=== PATIENT | male | born 1985 | race Caucasian/White ===

== ENCOUNTER → 2020-06-05 | Emergency (ER) | payer OTHER ==
[~2020-06-05] VITALS: Ht 180.3 cm; Wt 93.2 kg
[~2020-06-05] MED LIST: LISI-600 PO; LORazepam 2 mg/ml vial IV ONE; NO HOME MEDS; lisinopril 10 MG tablet PO ONE; normal saline 1000ML IV soln IVB ONE
[2020-06-05 19:15] LABS: BASOPHILS % (AUTO) 0.3 % (0-1); EOSINOPHILS % (AUTO) 0.3 % (0-6); HEMATOCRIT 53.7 % (42.0-52.0); LYMPHOCYTES # (AUTO) 0.6 X10'3 (1.1-4.8); LYMPHOCYTES % (AUTO) 7.3 % (21-51); MEAN CORPUSCULAR HEMOGLOBIN 33.9 PG (27.0-31.0); MEAN CORPUSCULAR HGB CONC 33.6 g/dL (33.0-36.5); MEAN CORPUSCULAR VOLUME 100.7 FL (78-98); MEAN PLATELET VOLUME 9.7 FL (7.4-10.4); MONOCYTES # (AUTO) 0.7 X10'3 (0-0.9); MONOCYTES % (AUTO) 8.1 % (2-12); NEUTROPHILS # (AUTO) 6.9 X10'3 (1.8-7.7); PLATELET COUNT 182 X10'3 (140-440); RED BLOOD COUNT 5.34 X10'6 (4.70-6.10); RED CELL DISTRIBUTION WIDTH 12.8 % (11.5-14.5); WHITE BLOOD COUNT 8.2 X10'3 (4.5-11.0)
[2020-06-05 19:21] LABS: HEMOGLOBIN 18.1 g/dl (14.0-17.9)
[2020-06-05 19:24] LABS: URINE AMPHETAMINE SCREEN NEGATIVE (Neg); URINE BARBITUATE SCREEN NEGATIVE (Neg); URINE BENZODIAZEPINES SCREEN NEGATIVE (Neg); URINE CANNABINOID SCREEN POSITIVE (Neg); URINE COCAINE SCREEN NEGATIVE (Neg); URINE METHADONE SCREEN NEGATIVE (Neg); URINE OPIATE SCREEN POSITIVE (Neg); URINE PHENCYCLIDINE SCREEN NEGATIVE (Neg)
[2020-06-05 19:32] LABS: ALANINE AMINOTRANSFERASE 39 U/L (12-78); ALBUMIN 4.2 G/DL (3.4-5.0); ALBUMIN/GLOBULIN RATIO 1.1 (1.1-1.5); ALKALINE PHOSPHATASE 65 IU/L (46-116); ANION GAP 11 (8-16); ASPARTATE AMINO TRANSFERASE 35 U/L (10-37); BILIRUBIN,TOTAL 0.9 MG/DL (0.1-1.0); BLOOD UREA NITROGEN 11 MG/DL (7-18); BUN/CREATININE RATIO 10.7 (5.4-32.0); CALCIUM 9.4 MG/DL (8.5-10.1); CHLORIDE 98 MMOL/L (99-107); CREATININE 1.03 MG/DL (0.60-1.10); GLUCOSE 88 MG/DL (70-104); SODIUM 138 MMOL/L (135-145); TOTAL CARBON DIOXIDE 29.2 MMOL/L (24-32); TOTAL PROTEIN 8.1 G/DL (6.4-8.2); eGFR 82 ML/MIN
[2020-06-05 19:40] LABS: ETHANOL < 0.010 GM/DL (0.0-0.010)
[2020-06-05 21:24] VITALS: BP 162/100
== END | disposition home or self-care (01) ==
LOC: ER 16:52
DX: I10 Essential (primary) hypertension (principal); F10.10 Alcohol abuse, uncomplicated; R51.9 Headache, unspecified; R11.10 Vomiting, unspecified; E86.0 Dehydration; Z91.14 Patient's other noncompliance with medication regimen; Z98.890 Other specified postprocedural states; Z72.89 Other problems related to lifestyle; Z88.6 Allergy status to analgesic agent; Z79.899 Other long term (current) drug therapy; Y90.0 Blood alcohol level of less than 20 mg/100 ml
CPT/HCPCS: 36415; 80053; 80305; 80320; 83880; 84484; 85025; 93005; 96374; 99285; J2060; J7030

== ENCOUNTER 2021-03-25 06:45 | Emergency (ER) | payer OTHER ==
[~2021-03-25] VITALS: Ht 180.3 cm; Wt 90.0 kg
[~2021-03-25 06:45] MED LIST changes: -LISI-600 PO; -LORazepam 2 mg/ml vial IV ONE; -lisinopril 10 MG tablet PO ONE; -normal saline 1000ML IV soln IVB ONE
[2021-03-25 06:58] VITALS: BP 175/118
[2021-03-25] MEDS ORDERED: ondansetron 4mg rapidly disintigrating tab PO ONE (07:10)
[2021-03-25] MEDS ORDERED: normal saline 1000ML IV soln IVB ONE ×2 (07:25→10:20)
[2021-03-25] MEDS: morphine 4 MG/ML inj SYRINge IV PRN ×2 (07:56→09:33)
[2021-03-25 08:04] LABS: BASOPHILS % (AUTO) 0.1 % (0-1); EOSINOPHILS % (AUTO) 0.1 % (0-6); HEMATOCRIT 55.2 % (42.0-52.0); LYMPHOCYTES # (AUTO) 0.4 X10'3 (1.1-4.8); LYMPHOCYTES % (AUTO) 3.2 % (21-51); MEAN CORPUSCULAR HEMOGLOBIN 34.9 PG (27.0-31.0); MEAN CORPUSCULAR HGB CONC 34.9 g/dL (33.0-36.5); MEAN CORPUSCULAR VOLUME 100.2 FL (78-98); MONOCYTES # (AUTO) 0.6 X10'3 (0-0.9); MONOCYTES % (AUTO) 4.8 % (2-12); NEUTROPHILS # (AUTO) 11.2 X10'3 (1.8-7.7); NEUTROPHILS % (AUTO) 91.8 % (42-75); PLATELET COUNT 158 X10'3 (140-440); RED BLOOD COUNT 5.51 X10'6 (4.70-6.10); RED CELL DISTRIBUTION WIDTH 13.2 % (11.5-14.5); WHITE BLOOD COUNT 12.1 X10'3 (4.5-11.0)
[2021-03-25 08:14] LABS: HEMOGLOBIN 19.2 g/dl (14.0-17.9)
[2021-03-25 08:16] LABS: ALANINE AMINOTRANSFERASE 97 U/L (12-78); ALBUMIN 4.3 G/DL (3.4-5.0); ALKALINE PHOSPHATASE 69 IU/L (46-116); ANION GAP 17 (8-16); ASPARTATE AMINO TRANSFERASE 65 U/L (10-37); BILIRUBIN,TOTAL 1.4 MG/DL (0.1-1.0); BLOOD UREA NITROGEN 13 MG/DL (7-18); BUN/CREATININE RATIO 11.1 (5.4-32.0); CALCIUM 8.8 MG/DL (8.5-10.1); CHLORIDE 97 MMOL/L (99-107); CREATININE 1.17 MG/DL (0.60-1.10); GLUCOSE 115 MG/DL (70-104); LIPASE 799 U/L (73-393); SODIUM 137 MMOL/L (135-145); TOTAL CARBON DIOXIDE 22.9 MMOL/L (24-32); TOTAL PROTEIN 8.6 G/DL (6.4-8.2); eGFR 71 ML/MIN
[2021-03-25] MEDS ORDERED: acetaminophen 325mg tablet PO ONE (08:50)
[2021-03-25] MEDS ORDERED: ondansetron/PF 4mg/2ml inj IV ONE (08:50)
[2021-03-25] MEDS ORDERED: morphine 4 MG/ML inj SYRINge IV PRN (08:50)
[2021-03-25] MEDS ORDERED: LORazepam 2 mg/ml vial IV ONE (10:20)
[2021-03-25] MEDS ORDERED: HYDR-3972 PO (10:51)
[2021-03-25] MEDS ORDERED: ONDA4TAB6 PO (10:51)
== END 2021-03-25 11:52 | disposition home or self-care (01) ==
LOC: ER 06:46
DX: K85.20 Alcohol induced acute pancreatitis without necrosis or infection (principal); R10.13 Epigastric pain; R11.2 Nausea with vomiting, unspecified; Z72.89 Other problems related to lifestyle; Z98.890 Other specified postprocedural states; Z88.6 Allergy status to analgesic agent; Z79.899 Other long term (current) drug therapy
CPT/HCPCS: 36415; 76700; 80053; 83690; 85025; 96361; 96374; 96375; 96376; 99284; J2060; J2270; J2405; J7030

== ENCOUNTER 2022-04-08 15:27 | Inpatient (IN) | payer OTHER ==
[~2022-04-08] VITALS: Ht 180.3 cm; Wt 96.0 kg
[~2022-04-08 15:27] MED LIST changes: +ONDA4TAB6 PO
[2022-04-08 16:59] LABS: BASOPHILS # (AUTO) 0.1 X10'3 (0-0.2); EOSINOPHILS % (AUTO) 0 % (0-6); PLATELET COUNT 168 X10'3 (140-440)
[2022-04-08 17:01] LABS: BASOPHILS % (AUTO) 0.3 % (0-1); LYMPHOCYTES # (AUTO) 0.2 X10'3 (1.1-4.8); LYMPHOCYTES % (AUTO) 1.3 % (21-51); MEAN CORPUSCULAR HEMOGLOBIN 34.7 PG (27.0-31.0); MEAN CORPUSCULAR HGB CONC 34.4 g/dL (33.0-36.5); MEAN CORPUSCULAR VOLUME 100.8 FL (78-98); MEAN PLATELET VOLUME 9.5 FL (7.4-10.4); MONOCYTES # (AUTO) 0.7 X10'3 (0-0.9); MONOCYTES % (AUTO) 3.9 % (2-12); NEUTROPHILS # (AUTO) 15.7 X10'3 (1.8-7.7); NEUTROPHILS % (AUTO) 94.5 % (42-75); RED BLOOD COUNT 5.65 X10'6 (4.70-6.10); RED CELL DISTRIBUTION WIDTH 13.6 % (11.5-14.5); WHITE BLOOD COUNT 16.6 X10'3 (4.5-11.0)
[2022-04-08 17:03] LABS: HEMOGLOBIN 19.6 g/dl (14.0-17.9)
[2022-04-08 17:10] LABS: ALANINE AMINOTRANSFERASE 58 U/L (12-78); ALBUMIN 4.3 G/DL (3.4-5.0); ALBUMIN/GLOBULIN RATIO 1.1 (1.1-1.5); ALKALINE PHOSPHATASE 57 IU/L (46-116); ANION GAP 13 (8-16); ASPARTATE AMINO TRANSFERASE 57 U/L (10-37); BILIRUBIN,TOTAL 1.4 MG/DL (0.1-1.0); BLOOD UREA NITROGEN 12 MG/DL (7-18); BUN/CREATININE RATIO 12.1 (5.4-32.0); CALCIUM 9.2 MG/DL (8.5-10.1); CHLORIDE 96 MMOL/L (99-107); CREATININE 0.99 MG/DL (0.60-1.10); GLUCOSE 131 MG/DL (70-104); SODIUM 131 MMOL/L (135-145); TOTAL CARBON DIOXIDE 21.7 MMOL/L (24-32); TOTAL PROTEIN 8.3 G/DL (6.4-8.2); eGFR 86 ML/MIN
[2022-04-08 17:19] LABS: LIPASE 4896 U/L (73-393)
[2022-04-08 17:32] LABS: CLARITY,URINE CLEAR (Clear); COLOR,URINE YELLOW (Yellow); GLUCOSE, URINE NEGATIVE (Neg); KETONES,URINE >=80 mg/dl (Neg); LEUKOCYTE ESTERASE ,URINE NEGATIVE (Neg); NITRITES, URINE NEGATIVE (Neg); OCCULT BLOOD,URINE MODERATE (Neg); PH,URINE 7.5 (4.8-8.0); PROTEIN,URINE >=300 mg/dl (Neg)
[2022-04-08 17:41] LABS: BACTERIA,URINE NONE SEEN /HPF (Neg); MUCUS STRANDS NONE SEEN /LPF (Neg); RBC,URINE 0-2 /HPF (0-2); SQUAMOUS EPITHELIAL CELL,UR NONE SEEN /LPF (FEW); UA COLLECTION TYPE CLN CATCH MIDSTREAM; WBC,URINE NONE SEEN /HPF (0-4)
[2022-04-08] MEDS ORDERED: pantoprazole 40 MG vial IV ONE (18:40)
[2022-04-08] MEDS ORDERED: morphine 4 MG/ML inj SYRINge IV ONE (18:40)
[2022-04-08] MEDS ORDERED: ondansetron/PF 4mg/2ml inj IV ONE (18:40)
[2022-04-08] MEDS ORDERED: normal saline 1000ML IV soln IVB ONE (18:40)
[2022-04-08] MEDS: morphine 2 MG/ML inj. syringe IV PRN ×2 (19:10→20:11)
[2022-04-08] MEDS: pantoprazole 40MG/NS 100ML BAG 100 ML IV SCH (19:26)
[2022-04-08] MEDS ORDERED: LORazepam 2 mg/ml vial IV ONE (19:35)
[2022-04-08] MEDS ORDERED: HYDROcodone/acetaminophen 5mg/325mg tablet PO PRN (19:35)
[2022-04-08] MEDS ORDERED: haloperidol 5mg tablet PO PRN (19:35)
[2022-04-08] MEDS ORDERED: haloperidol lactate 5mg/ml inj IM PRN (19:35)
[2022-04-08] MEDS ORDERED: ondansetron/PF 4mg/2ml inj IV PRN (19:35)
[2022-04-08] MEDS ORDERED: mag hydrox/Alum hydrox/simeth 30ml oral suspension PO PRN ×2 (19:35)
[2022-04-08] MEDS ORDERED: metoclopramide 5 mg/ml inj IV PRN (19:35)
[2022-04-08] MEDS ORDERED: morphine 2 MG/ML inj. syringe IV PRN (19:35)
[2022-04-08] MEDS ORDERED: acetaminophen 325mg tablet PO PRN ×2 (19:35)
[2022-04-08] MEDS ORDERED: magnesium hydroxide 30ml (MOM) UD suspension PO PRN (19:35)
[2022-04-08] MEDS ORDERED: dicyclomine 10 MG capsule PO PRN (19:35)
[2022-04-08] MEDS ORDERED: dextrose 50%-water 50ml dispensing syringe IV PRN (19:35)
[2022-04-08] MEDS ORDERED: cyclobenzaprine 10mg tablet PO PRN (19:35)
[2022-04-08] MEDS: LORazepam 2 mg/ml vial IV PRN ×2 (19:53→22:13)
[2022-04-08] MEDS: docusate sod 100mg capsule PO SCH (20:00)
[2022-04-08] MEDS: dextrose 5%-1/2 normal saline 1,000 ML IV SCH (20:07)
[2022-04-08] MEDS: thiamine 100mg/ml 2ml inj. IV SCH (21:02)
[2022-04-08 22:00] VITALS: BP 188/113
[2022-04-08] MEDS: HYDROcodone/acetaminophen 10/325mg tab PO PRN (22:20)
--- NOTE | 2022-04-09 00:26 | NUR ---
PAGER ID: [phone] MESSAGE: Please call Em at [phone] new admit with very high BP - [place]
[2022-04-09 00:29] VITALS: BP 207/107
[2022-04-09] MEDS ORDERED: cloNIDine 0.1 mg tablet PO ONE (00:30)
[2022-04-09] MEDS: morphine 2 MG/ML inj. syringe IV PRN ×5 (00:37→19:17)
[2022-04-09] MEDS: LORazepam 2 mg/ml vial IV PRN ×7 (00:38→22:22)
[2022-04-09] MEDS: pantoprazole 40MG/NS 100ML BAG 100 ML IV SCH ×2 (00:45→05:00)
[2022-04-09] MEDS: HYDROcodone/acetaminophen 10/325mg tab PO PRN ×3 (03:00→22:20)
[2022-04-09] MEDS: dextrose 5%-1/2 normal saline 1,000 ML IV SCH ×2 (04:59→15:25)
--- NOTE | 2022-04-09 06:17 | NUR ---
Problems reprioritized. Patient report given, questions answered & plan of care reviewed with ALMA Hansen.
[2022-04-09 06:33] LABS: BASOPHILS % (AUTO) 0.1 % (0-1); EOSINOPHILS % (AUTO) 0.1 % (0-6); HEMATOCRIT 51.3 % (42.0-52.0); HEMOGLOBIN 17.4 g/dl (14.0-17.9); LYMPHOCYTES # (AUTO) 0.4 X10'3 (1.1-4.8); LYMPHOCYTES % (AUTO) 2.3 % (21-51); MEAN CORPUSCULAR HEMOGLOBIN 34.4 PG (27.0-31.0); MEAN CORPUSCULAR HGB CONC 33.9 g/dL (33.0-36.5); MEAN CORPUSCULAR VOLUME 101.5 FL (78-98); MEAN PLATELET VOLUME 9.6 FL (7.4-10.4); MONOCYTES # (AUTO) 1.1 X10'3 (0-0.9); MONOCYTES % (AUTO) 7.1 % (2-12); NEUTROPHILS # (AUTO) 14.5 X10'3 (1.8-7.7); NEUTROPHILS % (AUTO) 90.4 % (42-75); PLATELET COUNT 145 X10'3 (140-440); RED BLOOD COUNT 5.06 X10'6 (4.70-6.10); RED CELL DISTRIBUTION WIDTH 13.7 % (11.5-14.5)
--- NOTE | 2022-04-09 06:46 | NUR ---
Patient in room [facility]. I have received report from Em MARQUEZ and had the opportunity to ask questions and assume patient care.
[2022-04-09 07:00] VITALS: BP 166/108
[2022-04-09 07:02] LABS: ALANINE AMINOTRANSFERASE 42 U/L (12-78); ALBUMIN 3.4 G/DL (3.4-5.0); ALKALINE PHOSPHATASE 44 IU/L (46-116); ASPARTATE AMINO TRANSFERASE 40 U/L (10-37); BILIRUBIN,TOTAL 1.1 MG/DL (0.1-1.0); BLOOD UREA NITROGEN 12 MG/DL (7-18); BUN/CREATININE RATIO 12.6 (5.4-32.0); CALCIUM 8.2 MG/DL (8.5-10.1); CREATININE 0.95 MG/DL (0.60-1.10); GLUCOSE 118 MG/DL (70-104); TOTAL CARBON DIOXIDE 24.3 MMOL/L (24-32); TOTAL PROTEIN 6.9 G/DL (6.4-8.2); eGFR 90 ML/MIN
[2022-04-09] MEDS: folic acid 1mg/0.2ml inj IV SCH (07:37)
[2022-04-09] MEDS: thiamine 100mg/ml 2ml inj. IV SCH ×3 (07:37→22:21)
[2022-04-09] MEDS: docusate sod 100mg capsule PO SCH ×2 (07:48→19:19)
[2022-04-09 07:53] LABS: CHLORIDE 98 MMOL/L (99-107)
[2022-04-09 10:05] VITALS: BP 161/103
--- NOTE | 2022-04-09 10:30 | NUR ---
paged Hospitalist regarding increased B/P. PAGER ID: [phone] MESSAGE: Re: Eric Campa 358B. B/P elevated. given 1 dose of Clonidine 0.2mg on Nocs. B/P 166/108 pulse 97. recheck 161/103 pulse 91. no other med orders. [facility] [id number].
[2022-04-09 10:41] LABS: ANION GAP 15 (8-16); POTASSIUM 3.7 MMOL/L (3.5-5.1); SODIUM 137 MMOL/L (135-145)
[2022-04-09 11:46] VITALS: BP 147/97
[2022-04-09 18:00] VITALS: BP 157/96
--- NOTE | 2022-04-09 18:35 | NUR ---
Problems reprioritized. Patient report given, questions answered & plan of care reviewed with Pat RN.
[2022-04-09 22:00] VITALS: BP 157/97
[2022-04-10] MEDS: morphine 2 MG/ML inj. syringe IV PRN ×3 (01:27→10:40)
[2022-04-10] MEDS: dextrose 5%-1/2 normal saline 1,000 ML IV SCH ×2 (01:27→11:35)
[2022-04-10] MEDS: HYDROcodone/acetaminophen 10/325mg tab PO PRN ×4 (03:16→17:33)
[2022-04-10] MEDS: LORazepam 2 mg/ml vial IV PRN ×2 (03:17→08:28)
[2022-04-10 06:00] VITALS: BP 155/97
[2022-04-10 06:26] LABS: EOSINOPHILS % (AUTO) 0.3 % (0-6); HEMOGLOBIN 17.1 g/dl (14.0-17.9); RED CELL DISTRIBUTION WIDTH 13.7 % (11.5-14.5)
[2022-04-10 06:28] LABS: BASOPHILS % (AUTO) 0.2 % (0-1); HEMATOCRIT 50.8 % (42.0-52.0); LYMPHOCYTES # (AUTO) 0.8 X10'3 (1.1-4.8); LYMPHOCYTES % (AUTO) 5.5 % (21-51); MEAN CORPUSCULAR HEMOGLOBIN 34.5 PG (27.0-31.0); MEAN CORPUSCULAR HGB CONC 33.7 g/dL (33.0-36.5); MEAN CORPUSCULAR VOLUME 102.4 FL (78-98); MEAN PLATELET VOLUME 9.6 FL (7.4-10.4); MONOCYTES # (AUTO) 1.5 X10'3 (0-0.9); MONOCYTES % (AUTO) 9.7 % (2-12); NEUTROPHILS # (AUTO) 12.7 X10'3 (1.8-7.7); NEUTROPHILS % (AUTO) 84.3 % (42-75); PLATELET COUNT 149 X10'3 (140-440); RED BLOOD COUNT 4.96 X10'6 (4.70-6.10); WHITE BLOOD COUNT 15.1 X10'3 (4.5-11.0)
--- NOTE | 2022-04-10 06:54 | NUR ---
Patient in room [facility] 358. I have received report from PAT RN and had the opportunity to ask questions and assume patient care.
[2022-04-10 06:58] LABS: ALANINE AMINOTRANSFERASE 31 U/L (12-78); ALBUMIN 3.2 G/DL (3.4-5.0); ALBUMIN/GLOBULIN RATIO 0.9 (1.1-1.5); ALKALINE PHOSPHATASE 44 IU/L (46-116); ANION GAP 9 (8-16); ASPARTATE AMINO TRANSFERASE 25 U/L (10-37); BILIRUBIN,TOTAL 1.1 MG/DL (0.1-1.0); BLOOD UREA NITROGEN 12 MG/DL (7-18); BUN/CREATININE RATIO 10.1 (5.4-32.0); CALCIUM 8.4 MG/DL (8.5-10.1); CHLORIDE 102 MMOL/L (99-107); CREATININE 1.19 MG/DL (0.60-1.10); GLUCOSE 85 MG/DL (70-104); POTASSIUM 3.7 MMOL/L (3.5-5.1); SODIUM 137 MMOL/L (135-145); TOTAL CARBON DIOXIDE 26.2 MMOL/L (24-32); TOTAL PROTEIN 6.7 G/DL (6.4-8.2); eGFR 69 ML/MIN
[2022-04-10] MEDS: docusate sod 100mg capsule PO SCH (08:00)
[2022-04-10] MEDS: folic acid 1mg/0.2ml inj IV SCH (08:25)
[2022-04-10] MEDS: thiamine 100mg/ml 2ml inj. IV SCH ×2 (08:25→13:19)
[2022-04-10 10:00] VITALS: BP 140/105
[2022-04-10 11:11] VITALS: BP 146/90
[2022-04-10] MEDS: LORazepam 1 MG tablet PO PRN ×2 (13:59→18:47)
--- NOTE | 2022-04-10 17:35 | NUR ---
Page Sent PAGER ID: [phone] MESSAGE: [phone] b soham kirkland tolerated lunch well and has not had any N/V. want to know if he can go home tonight? please let me know.
[2022-04-10] MEDS ORDERED: HYDR-3965 PO (17:45)
[2022-04-10] MEDS ORDERED: LORA-269 PO (17:45)
--- NOTE | 2022-04-10 18:54 | NUR ---
PT IS STABLE FOR DISCHARGE, IV DC AND CANNULA INTACT, ALL BELONGINGS TAKEN, ALL DC DISCHARGE INFO IS GONE OVER AND UNDERSTOOD, MEDS WERE SENT TO PHARMACY, PT WAS WALKED DOWN TO THE LOBBY AND LEFT WITH A FRIEND IN A PRIVATE VEHICLE.
[2022-04-12] MEDS ORDERED: thiamine 100mg tablet PO SCH (08:00)
[2022-04-13] MEDS ORDERED: folic acid 1mg tablet PO SCH (08:00)
== END 2022-04-10 18:50 | disposition home or self-care (01) | DRG 439 ==
LOC: ER 15:28 → ED HOLD 19:40 → SUR 3N 22:00
PROVIDERS: ADMIT Internal Medicine; ATTEND Internal Medicine
DX: K85.20 Alcohol induced acute pancreatitis without necrosis or infection (principal); F10.239 Alcohol dependence with withdrawal, unspecified; I10 Essential (primary) hypertension; Z88.6 Allergy status to analgesic agent; Z88.5 Allergy status to narcotic agent
CPT/HCPCS: 36415; 71045; 80053; 81001; 83690; 85025; 87081; 99285; C9113; G0378; J2060; J2270; J2405; J3411; J3490; J7030; J7042